=== PATIENT | female | born 1945 | race African-American/Black ===

== ENCOUNTER 2017-06-17 16:14 | Outpatient (CLI) | payer MEDICARE, MEDICAID ==
[2017-06-17 17:16] LABS: BASOPHILS % (AUTO) 1.1 % (0.0-2.0); EOSINOPHILS % (AUTO) 2.2 % (0.0-3.0); HEMATOCRIT 41.8 % (37.0-47.0); HEMOGLOBIN 13.4 G/DL (12.0-16.0); LYMPHOCYTES % (AUTO) 26.3 % (20.0-45.0); MEAN CORPUSCULAR VOLUME 99 FL (80-99); MONOCYTES % (AUTO) 8.3 % (1.0-10.0); NEUTROPHILS % (AUTO) 62.1 % (45.0-75.0); PLATELET COUNT 198 K/UL (150-450); RED BLOOD COUNT 4.21 M/UL (4.20-5.40); RED CELL DISTRIBUTION WIDTH 13.1 % (11.6-14.8); WHITE BLOOD COUNT 6.4 K/UL (4.8-10.8)
[2017-06-17 17:55] LABS: ALANINE AMINOTRANSFERASE 22 U/L (12-78); ALBUMIN 3.5 G/DL (3.4-5.0); ALBUMIN/GLOBULIN RATIO 0.9 (1.0-2.7); ALKALINE PHOSPHATASE 62 U/L (46-116); ANION GAP 3 mmol/L (5-15); ASPARTATE AMINO TRANSFERASE 28 U/L (15-37); BILIRUBIN,TOTAL 0.5 MG/DL (0.2-1.0); BLOOD UREA NITROGEN 15 mg/dL (7-18); CALCIUM 9.1 MG/DL (8.5-10.1); CARBON DIOXIDE 32 MMOL/L (21-32); CHLORIDE 104 MMOL/L (98-107); CREATININE 1.3 MG/DL (0.55-1.30); POTASSIUM 4.5 MMOL/L (3.5-5.1); SODIUM 139 MMOL/L (136-145)
== END 2017-06-17 18:14 | disposition home or self-care (01) ==
LOC: LAB 16:14
DX: R53.83 Other fatigue (principal)
CPT/HCPCS: 36415; 80053; 82306; 82607; 83036; 84443; 85025

== ENCOUNTER → 2019-01-16 | Outpatient (CLI) | payer MEDICARE, OTHER ==
--- NOTE | 2019-01-16 16:01 | Diagnostic Imaging Report ---
Indication: Right knee pain since December 22, predominantly on the medial side of the knee Technique: Sagittal, axial, and coronal proton-density fat-saturated, sagittal proton density, coronal T1 and STIR images obtained of the right knee Comparison: none Findings: Abnormal signal is seen within the medial body and posterior horn of the medial meniscus, consistent with meniscal tear. Abnormal signal is seen within the substance of the right lateral meniscus. This may represent either myxoid degeneration or intrasubstance tear. Subchondral cysts are seen within the lateral femoral condyle anteriorly. There is also some chondral abnormality on the articular surface of the patella. The remainder of the osseous marrow signal is normal. There is a joint effusion. There is also a popliteal cyst. The anterior cruciate and posterior cruciate ligaments are intact. The medial collateral and fibular collateral ligaments are intact. The extensor mechanism is intact. Impression: Evidence of medial meniscal tear Intrasubstance high signal within the lateral meniscus, either representing myxoid degeneration or intrasubstance tear. Joint effusion. There is also a popliteal cyst Degenerative changes, predominantly patellofemoral Intact ligaments
== END | disposition home or self-care (01) ==
LOC: MRI 12:26
DX: M25.561 Pain in right knee (principal); S83.241A Other tear of medial meniscus, current injury, right knee, initial encounter; X58.XXXA Exposure to other specified factors, initial encounter; M71.21 Synovial cyst of popliteal space [Baker], right knee